=== PATIENT | female | born 1945 | race Caucasian/White ===

== ENCOUNTER 2021-09-14 12:23 | Emergency (ER) | payer MEDICARE, OTHER, SELFPAY ==
[2021-09-14 12:38] VITALS: BP 134/77; PULSE 99; RESP 18; TEMP 36.5; O2SAT 94; BMI 34.9
[2021-09-14 15:53] LABS: Absolute Lymphocyte Count 1.03 X10^3/uL (0.83-4.51); Absolute Neutrophil Count 5.9 X10^3/uL (2.0-7.7); Basophil# 0.01 X10^3/uL; Basophil% 0.1 % (0-1); Hematocrit 45.9 % (37-47); Hemoglobin 14.9 g/dL (12.0-15.0); Lymphocyte # 1.03 X10^3/ul (0.83-4.51); Lymphocyte % 13.7 % (19-41); Mean Corp Hgb Conc 32.5 g/dL (32-36); Mean Corpuscular Hgb 29.7 pg (27.0-32.0); Mean Corpuscular Volume 91.6 fL (81-99); Mean Platelet Vol. 11.1 fl (6.2-12.0); Monocyte# 0.55 X10^3/uL; Monocyte% 7.3 % (0-10); NRBC Flagged by Analyzer 0 % (0-5); Neutrophil # 5.89 X10^3/uL (2.7-7.7); Neutrophil % 78.4 % (47-70); Platelet Count 309 K/mm3 (150-450); RBC Distribution Width CV 13.7 % (11.6-14.6); RBC Distribution Width SD 46.4 fl (35.1-43.9); Red Blood Count 5.01 M/mm3 (4.2-5.4); White Blood Count 7.5 K/mm3 (4.4-11.0)
[2021-09-14 16:15] LABS: Anion Gap 9 (5-15); BUN 24 mg/dL (7-18); BUN/Creat Ratio 19.4 RATIO (10-20); Calcium,Total 9.3 mg/dL (8.5-10.1); Chloride 105 mmol/L (98-107); Creatinine, Serum 1.24 mg/dL (0.55-1.02); EST Glomerular Filtration Rate 44 mL/min (>60); Est Glom Filt Rate - Afr Amer 54 mL/min (>60); Estimated Creatinine Clearance 37.72 ml/min; Glucose 126 mg/dL (74-106); Potassium 3.9 mmol/L (3.5-5.1); Sodium Level 140 mmol/L (136-145)
--- NOTE | 2021-09-14 16:16 | RAD_ITS ---
STUDY: X-RAY CHEST REASON FOR EXAM: Female, 76 years old. COUGH -- WR TECHNIQUE: Frontal radiograph COMPARISON: 08/08/2013 FINDINGS: Patchy left base opacity may represent pneumonia in the appropriate clinical setting. Normal size heart. Normal mediastinum and laurita. Normal visualized pulmonary arteries. Normal visualized aortic arch and descending thoracic aorta. Normal visualized thoracic spine. Normal visualized ribs, clavicles, and shoulders. There is no demonstrated abnormality of the visualized soft tissue structures of the upper abdomen. RAD/Chest 1 View (Portable) IMPRESSION: Patchy left base opacity may represent pneumonia in the appropriate clinical setting. Electronically Signed: Julio Segovia MD at 16:31 EST Tel , Service support ,
--- NOTE | 2021-09-14 16:50 | EDS_ITS ---
HPI History of Present Illness Chief Complaint: Cough Informant: patient Onset/Context/Timing Onset: Days (8-9) Context: Gradual Onset Timing: Continuous Quality: cough Current Severity: Moderate Maximum Severity: Moderate Worsened by: nothing Relieved by: nothing Associated Symptoms Associated Symptoms: fatigue, headache, fevers/chills Associated Symptoms ED: cough Narrative Narrative: 76-year-old healthy feet unvaccinated against Covid female presenting with Covid-like symptoms for the last 8 or 9 days, she did a rapid test early on that was negative. She is feeling worse now. Myalgias diarrhea, decreased oral intake yesterday and today, she denies any dyspnea. PFSH PFSH no medical history Home Medications multivitamin with folic acid [Thera] 1 tab PO DAILY 08/08/13 [History Last Taken 08/07/13] oxycodone-acetaminophen 1 tab PO Q4H PRN PRN #30 tablet 08/09/13 [Rx Last Taken Unknown] famotidine [Pepcid] 40 mg PO DAILY #10 tab 09/27/14 [Rx Last Taken Unknown] prednisone 50 mg PO DAILY #4 tab 09/27/14 [Rx Last Taken Unknown] Allergy/AdvReac Type Severity Reaction Status Date / Time No Known Allergies Allergy Verified 09/14/21 12:40 Social History Smoking Status: Never smoker ROS ROS ED Constitutional Constitutional ED: Reports body ache(s), chills, fatigue, fever(s), headache(s) and malaise Eyes Eyes: Denies change in vision or diplopia ENT ENT ED: Denies rhinorrhea or sore throat Cardiovascular Cardiovascular: Denies chest pain or palpitations Respiratory/Chest Respiratory/Chest: Reports cough; Denies dyspnea or dyspnea on exertion Gastrointestinal Gastrointestinal: Reports diarrhea; Denies abdominal pain, nausea or vomiting Genitourinary Genitourinary ED: Denies dysuria or hematuria Musculoskeletal Musculoskeletal: Denies back pain or neck pain Integumentary Denies abscess or rash Neurologic Neurologic: Reports headache(s); Denies paresthesias or weakness Psychiatric Psychiatric: Denies anxiety or suicidal thoughts EXAM Physical Exam Const Vital Signs: 09/14/21 12:38 Temperature 97.7 F L Temperature Source Temporal Pulse Rate 99 Respiratory Rate 18 Blood Pressure 134/77 H Blood Pressure Mean 96 Pulse Ox 94 Oxygen Delivery Method Room Air Positive well nourished and well developed Constitutional Narrative: Well-appearing, no distress General Appearance ED: well developed and NAD HEENT Reports moist mucous membranes normocephalic and atraumatic Eyes PERRL and EOMs intact bilaterally Neck full ROM, no lymphadenopathy and supple Resp normal respiratory effort and clear to auscultation bilaterally Cardio regular rate, regular rhythm and no murmurs Rate: Negative for tachycardic GI non-tender and non-distended Auscultation: normoactive bowel sounds Palpation: soft Back/Spine no CVA tenderness General Back: other FROM Extremity normal to inspection and no calf tenderness General Extremety ED: Negative for edema, pulses abnormal or tenderness General Extremity: Negative for edema or pulses abnormal Neuro oriented x3, CN's II-XII intact bilaterally and no sensory deficits noted Sensorium / Orientation: awake and alert Motor Exam: strength 5/5 throughout Skin no rashes or lesions noted and no wounds MDM MDM MDM Narrative Medical decision making narrative: Rapid Covid is positive. Her labs show a mild elevation of her creatinine, probably due to mild dehydration for which she was given a liter of fluid, her oxygenation is excellent, her x-ray does show evidence of some Covid pneumonitis that is not severe right now, I discussed all these findings with her. She meets criteria for monoclonal antibody infusion therapy but only today and tomorrow. We faxed the order immediately after I saw the patient to the clinic. Patient was given appropriate discharge instructions and reasons to return, and answered all questions at the bedside. Lab Data Attestation: I reviewed the patient's lab results. Labs: Laboratory Results - last 24 hr 09/14/21 09/14/21 13:40 13:40 WBC 7.5 RBC 5.01 Hgb 14.9 Hct 45.9 MCV 91.6 MCH 29.7 MCHC 32.5 RDW Std Deviation 46.4 H RDW Coeff of Connor 13.7 Plt Count 309 MPV 11.1 Immature Gran % (Auto) 0.500 Neut % (Auto) 78.4 H Lymph % (Auto) 13.7 L [place] % (Auto) 7.3 Eos % (Auto) 0.0 Baso % (Auto) 0.1 Absolute Neuts (auto) 5.9 Absolute Lymphs (auto) 1.03 Nucleated RBC % 0 Sodium 140 Potassium 3.9 Chloride 105 Carbon Dioxide 26.0 Anion Gap 9 BUN 24 H Creatinine 1.24 H Estim Creat Clear Calc 37.72 Est GFR (MDRD) Af Amer 54 L Est GFR (MDRD) Non-Af 44 L BUN/Creatinine Ratio 19.4 Glucose 126 H Calcium 9.3 Radiography Diagnostic Testing: Clinical Impression(s) from Imaging Studies Chest X-Ray 09/14/21 16:16 IMPRESSION: Patchy left base opacity may represent pneumonia in the appropriate clinical setting. Electronically Signed: Julio Segovia MD at 16:31 EST Tel , Service support , Discharge Plan Triage Chief Complaint: Cough ED Provider: Jayjay Dai Dx/Rx/DC Orders Clinical Impression: Pneumonia due to COVID-19 virus, Dehydration, mild Instructions: Coronavirus Disease 2019 (COVID-19): Caring for Yourself or Others Prescriptions: No Action multivitamin with folic acid [Thera] 1 TABLET tablet 1 tab PO DAILY RF: 0 oxycodone-acetaminophen 1 TABLET tablet 1 tab PO Q4H PRN PRN (Reason: PAIN) Qty: 30 RF: 0 famotidine [Pepcid] 40 MG tablet 40 mg PO DAILY Qty: 10 RF: 0 prednisone 50 MG tablet 50 mg PO DAILY Qty: 4 RF: 0 Primary Care Provider: Care Physician,No Primary Referrals: Doctor,Your [STAFF PHYSICIAN] - As Needed Activity Restrictions/Additional Instructions: Try to get a home portable pulse oximeter and closely watch your oxygen levels periodically. If you stay below 90% for more than a minute or so, and/or you are feeling like your breathing is getting worse, return to the emergency department for further evaluation. You are a candidate for monoclonal antibody infusion therapy, see the attached instructions for more information. They will call you concerning when they want you to come to the clinic to get the infusion which is a one-time dose to help protect you from getting more ill and becoming hospitalized with life-threaten ing illness due to Covid given your risk for worsening. Disposition Disposition: Home, Self Care
[2021-09-14 16:59] VITALS: RESP 14; O2SAT 92; O2SAT 93
[2021-09-14] MEDS: 0.9% Normal Saline 1,000 ML 999 ML IV (17:02)
== END 2021-09-14 18:03 | disposition home or self-care (01) ==
LOC: ED 16:55
PROVIDERS: Emergency Provider Emergency Medicine; Visit Provider Emergency Medicine
DX: U07.1 COVID-19 (principal); J12.82 Pneumonia due to coronavirus disease 2019; E86.0 Dehydration
CPT/HCPCS: 71045; 80048; 85025; 87426; 94760; 99284; J7030

== ENCOUNTER 2021-09-15 09:51 | Outpatient (CLI) | payer MEDICARE, OTHER, SELFPAY ==
[2021-09-15 10:15] VITALS: BP 116/66; PULSE 68; RESP 18; TEMP 36.8; O2SAT 96; BMI 34.9
[2021-09-15] MEDS: 0.9% Saline Lock 10 ML Syringe IV (10:17)
[2021-09-15 10:40] VITALS: BP 123/68; PULSE 72; RESP 16; TEMP 37.2; O2SAT 96
[2021-09-15 11:40] VITALS: BP 129/71; PULSE 71; RESP 16; TEMP 37.4; O2SAT 97
== END 2021-09-15 23:59 | disposition home or self-care (01) ==
LOC: MS3OUT 09:51 → MS3 09:52
PROVIDERS: Referring Provider Emergency Medicine; Visit Provider Emergency Medicine
DX: Z23 Encounter for immunization (principal); U07.1 COVID-19
CPT/HCPCS: J7050; M0243; A4216; Q0244

== ENCOUNTER 2024-01-23 11:40 | Outpatient (CLI) | payer MEDICARE, OTHER, SELFPAY ==
[2024-01-23 15:14] LABS: Hematocrit 41.8 % (37-47); Mean Corp Hgb Conc 31.1 g/dL (32-36); Mean Corpuscular Hgb 29.5 pg (27.0-32.0); Mean Platelet Vol. 12.2 fl (6.2-12.0); Platelet Count 279 K/mm3 (150-450); RBC Distribution Width CV 13.3 % (11.6-14.6); RBC Distribution Width SD 47.1 fl (35.1-43.9); White Blood Count 4.6 K/mm3 (4.4-11.0)
[2024-01-23 15:42] LABS: AST(SGOT) 18 U/L (15-37); Alanine Aminotransfer ALT/SGPT 24 U/L (13-56); Albumin, Serum 3.5 g/dL (3.2-5.0); Alkaline Phosphatase 84 U/L (45-117); Anion Gap 5 (5-15); BUN 18 mg/dL (7-18); BUN/Creat Ratio 18.9 RATIO (10-20); Calcium,Total 9.2 mg/dL (8.5-10.1); Chloride 109 mmol/L (98-107); Creatinine, Serum 0.95 mg/dL (0.55-1.02); EST Glomerular Filtration Rate 60 mL/min (>60); Est Glom Filt Rate - Afr Amer 73 mL/min (>60); Globulin 3.4 g/dL (2.2-4.2); Glucose 90 mg/dL (74-106); Potassium 4.3 mmol/L (3.5-5.1); Protein, Total 6.9 g/dL (6.4-8.2); Sodium Level 140 mmol/L (136-145)
== END 2024-01-23 23:59 | disposition home or self-care (01) ==
LOC: BIMLAB 11:41
PROVIDERS: PCP Family Medicine; Referring Provider Family Medicine; Visit Provider Family Medicine
DX: Z00.00 Encounter for general adult medical examination without abnormal findings (principal)
CPT/HCPCS: 36415; 80053; 85027